=== PATIENT | female | born 1965 | race Caucasian/White ===

== ENCOUNTER 2024-08-22 11:08 | Inpatient (IN) ==
--- NOTE | 2024-08-22 11:20 | Emergency Department Note ---
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 medial and central band of the plantar fascia with a small plantar spur formation. 9. Low-grade sprain of the anterior talofibular ligament. 10. Degenerative osteoarthritic changes of midfoot/hindfoot and tibiotalar joints. 11. The above-mentioned findings correspond to CT findings. Electronically signed by Aurora Akbar 08-22-2024 7:33 PM Foot MRI 08/22/24 16:01 EXAM: MR foot RT w/o con CLINICAL HISTORY: HX CELLULITIS R/O SEPTIC JOINT PT. DIABETIC UNABLE TO COMPLETE EXAM/CONTRAST DUE TO SEVERE PAIN C/O SWELLING AND PAIN IN ENTIRE RIGHT FOOT/ANKLE X 1 DAY PREV. INJURY LAST YEAR INPATIENT TECHNIQUE: MRI of the right foot was performed without intravenous contrast administration. Sequences obtained include: Sagittal T1-weighted, Sagittal STIR. COMPARISON: 08/22/2024 CT ankle, FINDINGS: Bones: Normal alignment of the visualized metatarsal and phalangeal bones. No fractures or dislocations. No skin sinus tract or ulcer formation is observed. Joints and Compartmental tendons: Marginal osteophytes were noted. Muscles/soft tissues: Extensive edema and fluid signal intensity are seen within intrinsic muscles and subcutaneous tissues. IMPRESSION: 1. Incomplete study due to patient's discomfort. 2. No evidence of acute fracture or dislocations. 3. Extensive edema within intrinsic muscles and subcutaneous tissues. 4. Degenerative osteoarthritic changes. Electronically signed by Aurora Akbar 08-22-2024 7:34 PM Discharge Plan Visit Data Chief Complaint: Foot Injury/Pain Stated Complaint: RT FOOT/ANKLE PAIN, CAN'T WALK ON IT ED Provider: Magali Suarez ED Midlevel Provider: Stephenie Sawant Discharge Problem: Septic joint Forms Stand Alone Forms: [facility] [place] Prescriptions Prescriptions: No Action atenolol 25 mg tablet 25 mg PO HS venlafaxine 150 mg capsule,extended release 24hr 150 mg PO HS fluticasone propionate 50 mcg/actuation spray,suspension 1 spray intranasal Q12H Rx Instructions: administer into each nostril lisinopril-hydrochlorothiazide 20-25 mg tablet 1 tab PO QAM Rx Instructions: currently on hold metformin 500 mg tablet 1,000 mg PO BID mirtazapine 15 mg tablet 15 mg PO HS pregabalin 75 mg capsule 75 mg PO BID rosuvastatin [Crestor] 10 mg tablet 10 mg PO HS venlafaxine 75 mg tablet 75 mg PO HS nitrofurantoin monohyd/m-cryst [Macrobid] 100 mg capsule 100 mg PO Q12H 5 Days Qty: 10 0RF Rx Instructions: must administer with a meal/food Adult 50 Plus Probiotic 4 billion cell capsule 4,000 mmu cells PO DAILY Rx Instructions: administer with a meal methenamine hippurate 1 gram tablet 1 g PO BID Qty: 90 3RF Ozempic 2 mg/dose (8 mg/3 mL) pen injector 2 mg SUBCUT WK Humulin R U-500 (Conc) Kwikpen 500 unit/mL (3 mL) insulin pen 0 unit SUBCUT TID Rx Instructions: Sliding scale Referrals Referrals: Gabriela Alcantara PA-C [Primary Care Provider] - Discharge Problem: Septic joint Qualifiers: Septic arthritis location: foot Septic arthritis organism: due to unspecified organism Laterality: right Qualified Code(s): M00.9 - Pyogenic arthritis, unspecified
--- NOTE | 2024-08-22 11:50 | XRay Report ---
XR ankle RT min 3V routine CLINICAL HISTORY: Right ankle pain. COMPARISON: None FINDINGS: Alignment of the right ankle is anatomic. There is no acute fracture. No osseous lesions a re identified. Ankle soft tissue swelling is present. There is mild posterior calcaneal spurring. The re is mild tibiotalar joint osteophytosis. IMPRESSION: 1. No fracture or dislocation within the right ankle. 2. Right ankle soft tissue swelling.. Mild tibiotalar joint osteoarthritis. 4. Posterior calcaneal spurring. ACT 112: Negative or not required by law. Electronically signed by: Star De Jesus M.D. 08/22/2024 11:48 AM
[2024-08-22] MEDS: KETOROLAC TROMETHAMINE 60 MG/2 ML VIAL IM STA (11:51)
[2024-08-22] MEDS: KETOROLAC TROMETHAMINE 15 MG/ML VIAL IV ONE (11:52)
[2024-08-22] MEDS: ACETAMINOPHEN 500 MG TAB PO STA (11:52)
--- NOTE | 2024-08-22 12:08 | XRay Report ---
XR foot RT min 3V routine CLINICAL HISTORY: Right foot pain. COMPARISON: None FINDINGS: Alignment of the right foot is anatomic. No acute fractures. Tarsometatarsal joints are in tact. Several radiodensities of the forefoot measure up to 4 mm. There is mild posterior calcaneal sp urring. There is a tiny plantar calcaneal spur. Mild midfoot osteophytosis is present. There is right ankle and foot soft tissue swelling. IMPRESSION: 1. No acute fractures within the right foot. 2. Right ankle and foot soft tissue swelling. 3. Several small radiodensities within the right forefoot that measure up to 4 mm. These are likely d egenerative in etiology. Foreign bodies would be difficult to exclude but considered less likely. ACT 112: Negative or not required by law. Electronically signed by: Star De Jesus M.D. 08/22/2024 12:06 PM
[2024-08-22 12:34] LABS: Basophils # (auto) 0.01 K/uL (0.00-0.20); Basophils % (auto) 0.1 %; Hematocrit (blood only) 26.1 % (37.0-47.0); Hemoglobin 8.4 g/dl (12.0-16.0); Immature Granulocytes # (auto) 0.05 K/uL (0.01-0.20); Immature Granulocytes % (auto) 0.7 %; Lymphocytes # (auto) 0.42 K/uL (1.20-3.40); Lymphocytes % (auto) 5.6 %; Mean Corpuscular Hemoglobin 26.1 pg (25.0-34.0); Mean Corpuscular Hgb Conc 32.2 g/dL (32.0-36.0); Mean Corpuscular Volume 81.1 fL (80.0-100.0); Mean Platelet Volume 9.9 fL (9.4-12.4); Monocytes # (auto) 0.53 K/uL (0.11-0.59); Neutrophils # (auto) 6.51 K/uL (1.40-6.50); Neutrophils % (auto) 86.6 %; Platelet Count 176 K/uL (130-400); RDW Coefficient of Variation 16.4 % (11.5-14.5); RDW Standard Deviation 49.2 fL (36.4-46.3); Red Blood Count 3.22 M/uL (4.20-5.40); White Blood Count 7.52 K/ul (4.8-10.8)
[2024-08-22 12:54] LABS: Albumin Globulin Ratio 0.9 (0.9-2); Albumin Level 3.5 gm/dl (3.4-5.0); BUN Creatinine Ratio 16.8 (10-20); Bilirubin,Total 0.8 mg/dl (0.2-1.0); C Reactive Protein 15.33 mg/dl (0-0.5); Creatinine Clr Calc Pharmacy 69.3 ml/min; Globulin 3.7 gm/dl (2.5-4.0); Potassium 4.4 mmol/L (3.5-5.1); Total Protein 7.2 gm/dl (6.0-8.3); Uric Acid 4.9 mg/dl (2.6-7.2)
[2024-08-22 13:21] LABS: Lyme Screen Rflx Confirmation Negative (Negative)
[2024-08-22 13:48] LABS: Procalcitonin 2.58 ng/ml (0-0.5)
[2024-08-22] MEDS: OPTIRAY 320 100ml IV ONE (14:20)
--- NOTE | 2024-08-22 14:43 | CT Scan Report ---
EXAM: CT Right Lower Extremity With Intravenous Contrast Ankle INDICATION: Evaluate for septic joint. TECHNIQUE: Axial computed tomography images of the right ankle with intravenous contrast. Sagittal and coronal reformatted images were created and reviewed. This CT exam was performed using one or more of the following dose reduction techniques: automated exposure control, adjustment of the mA and/or kV according to patient size, and/or use of iterative reconstruction technique. CONTRAST: 94ml of Optiray 320 was administered intravenously. COMPARISON: No relevant prior studies available. FINDINGS: Bones/joints: Small amounts of fluid noted along the Achilles tendon and at plantar muscular insertions including flexor musculature posterior to the tibiotalar joint. Small to moderate-sized irregular joint effusion with gas noted subjacent and slightly lateral to the talus. The bones are generally demineralized. There is mild subchondral cystic changes of the inferolateral cortex of the posterior talus sagittal image 38. There is mild subcortical lucency of the anterior talar cortex without defined erosion. There is no fracture or periosteal reaction. Soft tissues: Subcutaneous edema and induration noted most notable along the distal fibula. There is thickening of the lateral superficial fascia. There is no soft tissue gas collection. No radiopaque foreign body noted. Vasculature: There is partial thrombosis of a prominent medial plantar vein. IMPRESSION: 1. Assuming there has been no recent intra-articular intervention, and small to moderate irregular joint effusion noted containing gas consistent with septic joint. Early osteomyelitis of the inferolateral and anterior talar cortices cannot be excluded. 2. Small amounts of fluid noted along the Achilles tendon and at muscular insertions i posterior to the tibiotalar joint. 3. There is partial thrombosis of a prominent medial plantar vein. ACT 112: Negative or not required by law. Electronically signed by Lori Emmanuel 08-22-2024 2:42 PM
[2024-08-22] MEDS ORDERED: DAPTOmycin 375 MG in SYRINGE 0 ML IV SCH (15:30)
[2024-08-22 15:50] LABS: Troponin I High Sensitivity 5.3 pg/ml (0-14)
[2024-08-22] MEDS: DAPTOmycin 500 MG in SYRINGE 0 ML IV ONE (15:56)
[2024-08-22] MEDS: SODIUM CHLORIDE 0.9% 1,000 ML IV ONE ×2 (15:56→18:31)
[2024-08-22] MEDS: PIPERACILLIN/TAZOBACTAM 4.5 GM/100 ML BAG IV ONE (15:56)
[2024-08-22] MEDS: MoRPHine SULFATE 4 MG/ML 1 ML CARP\\VIAL IV STA (18:31)
--- NOTE | 2024-08-22 19:16 | Emergency Department Note ---
ED Visit Note I was consulted by the Advanced Practice Provider. I personally approved the management plan and take responsibility for the patient management. This includes the aspects of: -History/Physical -MDM -I independently interpreted the following studies:Studies and results .
--- NOTE | 2024-08-22 19:34 | Magnetic Resonance Report ---
EXAM: MR ankle RT wo con CLINICAL HISTORY: HX CELLULITIS R/O SEPTIC JOINT PT. DIABETIC UNABLE TO COMPLETE EXAM/CONTRAST DUE TO SEVERE PAIN C/O SWELLING AND PAIN IN ENTIRE RIGHT FOOT/ANKLE X 1 DAY PREV. INJURY LAST YEAR INPATIENT TECHNIQUE: Multiplanar multi-sequential MRI of right ankle joint was performed without IV contrast administration. COMPARISON: 08/22/2024 CT ankle. FINDINGS: Bones: Normal alignment of the tibia, fibula, talus, calcaneus, navicular, cuboid, cuneiforms, and metatarsals. No fractures or dislocations. There is marked bone marrow edema involving calcaneus, and talus, most pronounced close to the subtalar joint. A small (1.1x0.8 cm) T1 hypo T2 hyperintense structure is noted in the mid-calcaneal level. No skin sinus tract or ulcer formation is observed. Joints and Compartmental tendons: Marginal osteophytes were noted at the tibiotalar, subtalar, tarsometatarsal, and talocalcaneal joints. Tibioatalar and subtalar joint effusion were observed with fluid signal around the ankle tendons in the background of mild tenosynovitis. Small effusion in the retrocalcaneal bursa associated with mild thickening of Achilles tendon inferomedially and intrasubstance altered signal. The tibialis anterior, extensor digitorum, and extensor hallucis longus are unremarkable. Articulations: The articulations of the tibiotalar, posterior subtalar, talonavicular anterior, subtalar, cuboidometatarsal, cuneometatarsal, intertarsal, and tarsometatarsal were unremarkable. Sinus tarsi and plantar fascia: Mild signal increase in sinus tarsi on T2W images with loss of fat signal on T1W images Mild thickening of medial and central bands of plantar fascia with small spur formation at the attachment. Ligaments: The deltoid ligament is intact. The calcaneofibular ligament is intact. Low-grade sprain of the anterior talofibular ligament. Intact posterior talofibular ligament. The intertarsal ligaments are unremarkable. The Calcaneocuboid and calcaneonavicular ligament are intact. Intact, intertarsal ligaments. Intact cuneometatarsal ligaments. Intact Lisfranc ligament. Muscles/Soft tissues: Extensive edema and fluid signal intensity are seen within midfoot and hindfoot intrinsic muscles and subcutaneous tissues. IMPRESSION: 1. Extensive edema and fluid signal intensity seen within midfoot and hindfoot intrinsic muscles and subcutaneous tissues may reflect inflammatory/infectious etiologies including cellulitis. 2. Marked bone marrow edema involving calcaneus, and talus, most pronounced surrounding the subtalar joint, which is suggestive of osteitis. 3. A small (1.1x0.8 cm) cyst-like structure in the mid-calcaneal level, indeterminate in etiology. Might be Trevin's abscess formation. Contrast-enhanced MR is recommended. 4. No sinus tract or ulcer formation observed. 5. Loss of fat signal of sinus tarsi. 6. Moderate tibioatalar and subtalar joint effusion with fluid signal around the ankle tendons in the background of mild tenosynovitis. Infected fluid can be ruled out with aspiration if needed. 7. Small effusion in the retrocalcaneal bursa associated with medial thickening and an altered intrasubstance signal of Achilles tendon, consistent with tendinopathy. 8. Mild thickening of the medial and central band of the plantar fascia with a small plantar spur formation. 9. Low-grade sprain of the anterior talofibular ligament. 10. Degenerative osteoarthritic changes of midfoot/hindfoot and tibiotalar joints. 11. The above-mentioned findings correspond to CT findings. Electronically signed by Aurora Akbar 08-22-2024 7:33 PM
--- NOTE | 2024-08-22 19:35 | Magnetic Resonance Report ---
EXAM: MR foot RT w/o con CLINICAL HISTORY: HX CELLULITIS R/O SEPTIC JOINT PT. DIABETIC UNABLE TO COMPLETE EXAM/CONTRAST DUE TO SEVERE PAIN C/O SWELLING AND PAIN IN ENTIRE RIGHT FOOT/ANKLE X 1 DAY PREV. INJURY LAST YEAR INPATIENT TECHNIQUE: MRI of the right foot was performed without intravenous contrast administration. Sequences obtained include: Sagittal T1-weighted, Sagittal STIR. COMPARISON: 08/22/2024 CT ankle, FINDINGS: Bones: Normal alignment of the visualized metatarsal and phalangeal bones. No fractures or dislocations. No skin sinus tract or ulcer formation is observed. Joints and Compartmental tendons: Marginal osteophytes were noted. Muscles/soft tissues: Extensive edema and fluid signal intensity are seen within intrinsic muscles and subcutaneous tissues. IMPRESSION: 1. Incomplete study due to patient's discomfort. 2. No evidence of acute fracture or dislocations. 3. Extensive edema within intrinsic muscles and subcutaneous tissues. 4. Degenerative osteoarthritic changes. Electronically signed by Aurora Akbar 08-22-2024 7:34 PM
[2024-08-22] MEDS: ACETAMINOPHEN 1,000 MG/100 ML VIAL IV STA (21:14)
[2024-08-22] MEDS ORDERED: DEXTROSE 50% 50 ML SYRINGE IV PRN (21:43)
[2024-08-22] MEDS ORDERED: GLUCAGON FOR INJ 1 MG VIAL SQ PRN (21:43)
[2024-08-22] MEDS ORDERED: GLUCOSE 40% GEL 15 GM TUBE PO PRN (21:43)
[2024-08-22] MEDS ORDERED: GLUCOSE 10 TAB/TUBE PO PRN (21:43)
[2024-08-22] MEDS ORDERED: CARBOHYDRATES FOR HYPOGLYCEMIA PO PRN (21:43)
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
[2024-08-22] MEDS ORDERED: CEFEPIME 2000MG 2,000 MG/20 ML SYR IV STA (21:56)
[2024-08-22 22:12] LABS: Thyroid Stimulating Hormone 1.592 uIu/ml (0.300-4.500)
[2024-08-22] MEDS: INSULIN ASPART PER UNIT CHARGE SC SCH (22:43)
[2024-08-22] MEDS: LANTUS PER UNIT CHARGE SQ STA (22:43)
[2024-08-22] MEDS: oxyCODONE HCL IR 5 MG TAB (IMMEDIATE RELEASE) PO PRN (22:48)
[2024-08-22 22:51] LABS: Base Excess VBG -5.4 mEq/L; HCO3 VBG 18 mmol/L; Oxygen Saturation VBG 87.1 %; PCO2 VBG 28 mmHg (38-50); PO2 VBG 52 mmHg; pH VBG 7.42 (7.36-7.41)
[2024-08-22 23:03] LABS: Reticulocyte % 1.88 % (0.50-2.00); Reticulocytes # 0.06 10^6/uL (0.020-0.100)
[2024-08-22 23:35] LABS: Ferritin 128.2 ng/ml (8-388)
[2024-08-22 23:36] LABS: A calco-baum cmplx NotReported Not Detected (NotDetected); Bact fragilis Not Reported Not Detected (NotDetected); Blood Culture Id Panel See PCR Comment (NotDetected); C auris Not Reported Not Detected (NotDetected); Calbicans Not Reported Not Detected (NotDetected); Candida glabrata Not Reported Not Detected (NotDetected); Candida krusei Not Reported Not Detected (NotDetected); Cneoformans/gatti Not Reported Not Detected (NotDetected); Cparapsilosis Not Reported Not Detected (NotDetected); E cloacae compx Not Reported Not Detected (NotDetected); Efaecalis Not Reported Not Detected (NotDetected); Efaecium Not Reported Not Detected (NotDetected); Enterobacterales Not Reported Not Detected (NotDetected); Escherichia coli Not Reported Not Detected (NotDetected); H influenzae Not Reported Not Detected (NotDetected); K aerogenes Not Reported Not Detected (NotDetected); Koxytoca Not Reported Not Detected (NotDetected); Kpneumoniae grp Not Reported Not Detected (NotDetected); Lmonocyt Not Reported Not Detected (NotDetected); N meningitidis Not Reported Not Detected (NotDetected); P aeruginosa Not Reported Not Detected (NotDetected); Proteus spp Not Reported Not Detected (NotDetected); Salmonella spp Not Reported Not Detected (NotDetected); Staph lugdunensis Not Reported Not Detected (NotDetected); Staph spp. Not Reported Not Detected (NotDetected); Staphaureus Not Reported Not Detected (NotDetected); Staphepi Not Reported Not Detected (NotDetected); Stenmaltophilia Not Reported Not Detected (NotDetected); Strep agal(GrpB) Not Reported DETECTED (NotDetected); Strep pneum Not Reported Not Detected (NotDetected); Strep pyog (GrpA) Not Reported Not Detected (NotDetected); Strep spp Not Reported DETECTED (NotDetected); Streptococcus spp DETECTED (NotDetected)
[2024-08-22 23:41] LABS: Folate (Folic Acid),Ser orPlas 12.41 ng/ml (>5.38)
--- NOTE | 2024-08-22 23:54 | Ultrasound Report ---
Exam(s): US VENOUS RIGHT LOWER EXTREMITY EXAM: US Duplex Right Lower Extremity Veins CLINICAL HISTORY: Reason for exam: swelling. TECHNIQUE: Real-time duplex ultrasound scan of the right lower extremity veins integrating B-mode two-dimensional vascular structure, Doppler spectral analysis, color flow Doppler imaging and compression. COMPARISON: No relevant prior studies available. FINDINGS: The exam is limited. Deep veins: No DVT in the visualized common femoral, femoral and proximal deep femoral veins. The popliteal vein was not visualized. The veins demonstrate normal color flow, are normally compressible, with normal phasic flow and/or augmentation response. Superficial veins: No thrombus in the visualized great saphenous vein. Soft tissues: No acute findings. No popliteal cyst. IMPRESSION: Limited exam. No deep venous thrombosis is noted in the visualized portions of the vessels. See discussion above Electronically signed by: Daniel Walsh MD 08/22/24 23:52 PM
--- NOTE | 2024-08-22 23:58 | XRay Report ---
Exam(s): XR CXR 1 VIEW EXAM: XR Chest, 1 View CLINICAL HISTORY: Reason for exam: hyponat. TECHNIQUE: Frontal views of the chest. COMPARISON: 05/19/2024. FINDINGS: Lungs: There is pulmonary vascular congestion. There are bilateral infiltrates. Pleural space: No pleural effusion is seen. No pneumothorax. Heart: The heart is enlarged.. Mediastinum: Unremarkable. There is mild uncoiling of thoracic aorta. Bones/joints: There are degenerative changes in the spine. IMPRESSION: Cardiomegaly with pulmonary vascular congestion and bilateral infiltrates may represent congestive heart failure/pulmonary edema. Cannot exclude underlying pneumonia. Electronically signed by: Daniel Walsh MD 08/22/24 23:56 PM
[2024-08-23 00:11] LABS: Streptococcus agalactiae(GrpB) DETECTED (NotDetected)
[2024-08-23 00:26] LABS: Magnesium 1.1 mg/dl (1.7-2.4)
[2024-08-23] MEDS: ALBUMIN 25% 25 GM/100 ML VIAL IV ONE ×3 (00:33→21:11)
[2024-08-23] MEDS: CEFEPIME 2000MG 2,000 MG/20 ML SYR IV SCH (01:23)
[2024-08-23] MEDS: PROMETHAZINE 6.25 MG/50.25 ML BAG IV PRN (02:18)
[2024-08-23] MEDS: ACETAMINOPHEN 500 MG TAB PO STA (02:45)
[2024-08-23] MEDS ORDERED: MoRPHine SULFATE 4 MG/ML 1 ML CARP\\VIAL IV PRN (03:13)
[2024-08-23] MEDS: PIPERACILLIN/TAZOBACTAM 4.5 GM/100 ML BAG IV SCH (03:43)
[2024-08-23] MEDS: MAGNESIUM SULFATE / D5W 1 GM/100 ML BAG IV SCH (03:45)
[2024-08-23 07:25] LABS: Estimated Average Glucose 166 mg/dl; Hemoglobin A1C 7.4 % (4.5-5.6)
[2024-08-23 07:51] LABS: Appearance Urine Cloudy (Clear); Bacteria Urine Automated None Seen (None Seen); Bilirubin Urine Negative (Negative); Blood Urine 2+ (Negative); Cast Urine Automated 0-2 /lpf (0-2); Color Urine Yellow; Glucose Urine UA Negative (Negative); Ketones Urine Trace (Negative); Leukocyte Esterase Urine Negative (Negative); Nitrite Urine Negative (Negative); Protein Urine 2+ (Negative); RBC Urine Automated 0-2 /hpf (0-2); Specific Gravity Urine 1.023 (1.000-1.030); Urobilinogen Urine Negative (Negative); WBC Urine Automated 0-5 /hpf (0-5)
[2024-08-23] MEDS: oxyCODONE HCL IR 5 MG TAB (IMMEDIATE RELEASE) PO PRN (08:04)
--- NOTE | 2024-08-23 08:23 | Hospitalist Progress Note ---
Date of Service August 23, 2024 Assessment & Plan (1) Sepsis: Plan: Septicemia Gram positive bacteremia Streptococcus on initial blood cultures Secondary to DM foot infection Patient not forthcoming about duration of symptoms. Reports having issues w/ R foot for some time but worsening since Reports she follows w/ outpt podiatry Dr. Esquivel in [place] - seen in about month ago for right foot- 5th toe Repeat blood cultures admitted to tele Echo obtained - LV is normal in size. Borderline concentric LVH. LV wall motion is normal. LVEF 60 to 65%. Diastolic function appears normal. There is no significant valvular disease. Follow blood cultx cont. zosyn Podiatry consulted, Offload RLE ID consulted Recurrent UTI on chronic methenamine suppression Rx Reports being treated w/ bactrim for several days for most recent UTI, last week Current UA negat. fo UTI Pulmonary congestion with abnormal BNP, echo obtained, cont. to monitor fluid status Hypertension, BP on the lower side, Hold BP meds for now given borderline BP Hyperlipidemia, on statin Rx DM2 insulin requiring, BSG markedly elevated, outpatient hemoglobin A1c of 7.5 from December 2023 as per outpatient records. Basal bolus insulin, ISS BG goal 110-140, carb count coverage Current hemoglobin A1c 7.4% Glycemic pharmacy consulted Acute on chronic anemia, patient denies overt GI/ bleed symptoms, currently declining FOBT Anemia workup, transfuse PRBC if hemoglobin less than 7 and or for symptomatic anemia Anxiety/mood disorder, cont. venlafaxine DVT prophylaxis. SCDs re: possible procedure Full code Admission and Anticipated Discharge Date Admission Date: August 22, 2024 Subjective Patient seen in follow up for sepsis, Gram-positive bacteremia Reports right foot pain since last worsening. Also reports chills at night since History of recurrent UTI, reports being treated with Bactrim for UTI since Friday Currently laying in bed, in no acute distress, but appears ill No chest pain, abdominal pain, nausea vomiting. Reports some shortness of breath for past several days Echo obtained Podiatry, ID consulted Says she follows w/ podiatry - Dr. Esquivel in [place] as outpt Review of Systems Review of Systems: All systems reviewed & are unremarkable except as noted in Subjective Physical Exam Physical Exam: GENERAL: obese F in NAD, + appears ill HEENT: NC/AT, EOMI. NECK : Supple CHEST : Decreased breath sounds, no tenderness HEART : + mildly tachycardic, no obvious murmurs ABDOMEN: soft, some distention, nontender EXTREMITIES : Tender right foot/right ankle , + swelling, no erythema noted NEUROLOGIC : Coherent, no facial asymmetry, speech fluent, answers appropriately, moves extremities SKIN: warm, dry Results & Data Results & Data Vital Signs (Past 12 Hours) Vital Signs Temp Pulse Pulse Resp BP BP Pulse Ox 08/23/24 08:17 100 H 08/23/24 07:30 08/23/24 06:03 37.0 C 95 H 18 104/65 90 08/23/24 04:58 37.1 C 08/23/24 04:37 106 H 08/23/24 03:57 65 08/23/24 03:54 37.8 C H 107 H 18 99/61 L 91 08/23/24 00:10 08/23/24 00:10 37.0 C 108 H 18 127/67 90 08/22/24 23:44 38.1 C H 107 H 20 113/50 L 94 08/22/24 22:01 111 H 20 117/55 L 100 O2 Del Method 08/23/24 08:17 08/23/24 07:30 Room Air 08/23/24 06:03 Room Air 08/23/24 04:58 08/23/24 04:37 08/23/24 03:57 08/23/24 03:54 Room Air 08/23/24 00:10 Room Air 08/23/24 00:10 Room Air 08/22/24 23:44 Room Air 08/22/24 22:01 Laboratory Results 08/23/24 08/23/24 08/22/24 Range/Units 06:40 06:31 22:45 WBC (4.8-10.8) K/ul RBC (4.20-5.40) M/uL Hgb (12.0-16.0) g/dl Hct (37.0-47.0) % MCV (80.0-100.0) fL MCH (25.0-34.0) pg MCHC (32.0-36.0) g/dL RDW Std Deviation (36.4-46.3) fL RDW Coeff of Karissa (11.5-14.5) % Plt Count (130-400) K/uL MPV (9.4-12.4) fL Immature Gran % (Auto) % Neut % (Auto) % Lymph % (Auto) % [place] % (Auto) % Eos % (Auto) % Baso % (Auto) % Reticulocyte % (Auto) (0.50-2.00) % Neut # (Auto) (1.40-6.50) K/uL Lymph # (Auto) (1.20-3.40) K/uL [place] # (Auto) (0.11-0.59) K/uL Eos # (Auto) (0.00-0.50) K/uL Baso # (Auto) (0.00-0.20) K/uL Reticulocyte # (0.020-0.100) 10^6/uL Immature Gran # (Auto) (0.01-0.20) K/uL VBG pH (7.36-7.41) VBG pCO2 (38-50) mmHg VBG pO2 mmHg VBG HCO3 mmol/L VBG O2 Saturation % VBG Base Excess mEq/L Sodium (136-145) mmol/L Potassium (3.5-5.1) mmol/L Chloride (98-107) mmol/L Carbon Dioxide (21-32) mmol/L Anion Gap (3-11) BUN (6-23) mg/dl Creatinine (0.6-1.2) mg/dl Est Cr Clr Drug Dosing ml/min eGFR BUN/Creatinine Ratio (10-20) Glucose (70-99(Fasting)) mg/dl POC Glucose (70-99) mg/dl Estimat Average Glucose mg/dl Hemoglobin A1c (4.5-5.6) % Uric Acid (2.6-7.2) mg/dl Calcium (8.6-10.3) mg/dl Magnesium (1.7-2.4) mg/dl Iron (35-150) mcg/dl Transferrin (200-360) mg/dl Ferritin (8-388) ng/ml Total Bilirubin (0.2-1.0) mg/dl AST (13-39) U/L ALT (7-52) U/L Alkaline Phosphatase (34-104) U/L Ammonia (18-72) umol/L Troponin I High Sens (0-14) pg/ml C-Reactive Protein (0-0.5) mg/dl B-Natriuretic Peptide 422 H (0-100) pg/ml Total Protein (6.0-8.3) gm/dl Albumin (3.4-5.0) gm/dl Globulin (2.5-4.0) gm/dl Albumin/Globulin Ratio (0.9-2) Vitamin B12 (180-914) pg/ml Folate (>5.38) ng/ml Procalcitonin (0-0.5) ng/ml TSH (0.300-4.500) uIu/ml Urine Color Yellow Urine Appearance Cloudy A (Clear) Urine pH 6.0 (4.5-7.5) Ur Specific [place] 1.023 (1.000-1.030) Urine Protein 2+ H (Negative) Urine Glucose (UA) Negative (Negative) Urine Ketones Trace H (Negative) Urine Blood 2+ H (Negative) Urine Nitrite Negative (Negative) Urine Bilirubin Negative (Negative) Urine Urobilinogen Negative (Negative) Ur Leukocyte Esterase Negative (Negative) Urine WBC (Auto) 0-5 (0-5) /hpf Urine RBC (Auto) 0-2 (0-2) /hpf U Hyaline Cast (Auto) 0-2 (0-2) /lpf U Epithel Cells (Auto) 11-20 H (0-2) /hpf Urine Bacteria (Auto) None Seen (None Seen) Nasal Screen MRSA (PCR) (Negative) Stool Occult Bld Scrn Negative (Negative) Lyme Disease Screen (Negative) Streptococcus sp PCR (NotDetected) Strep agalactiae (PCR) (NotDetected) Bld Cult ID Panel PCR (NotDetected) Blood Type Antibody Screen 08/22/24 08/22/24 08/22/24 Range/Units 22:44 22:33 22:14 WBC (4.8-10.8) K/ul RBC (4.20-5.40) M/uL Hgb (12.0-16.0) g/dl Hct (37.0-47.0) % MCV (80.0-100.0) fL MCH (25.0-34.0) pg MCHC (32.0-36.0) g/dL RDW Std Deviation (36.4-46.3) fL RDW Coeff of Karissa (11.5-14.5) % Plt Count (130-400) K/uL MPV (9.4-12.4) fL Immature Gran % (Auto) % Neut % (Auto) % Lymph % (Auto) % [place] % (Auto) % Eos % (Auto) % Baso % (Auto) % Reticulocyte % (Auto) 1.88 (0.50-2.00) % Neut # (Auto) (1.40-6.50) K/uL Lymph # (Auto) (1.20-3.40) K/uL [place] # (Auto) (0.11-0.59) K/uL Eos # (Auto) (0.00-0.50) K/uL Baso # (Auto) (0.00-0.20) K/uL Reticulocyte # 0.060 (0.020-0.100) 10^6/uL Immature Gran # (Auto) (0.01-0.20) K/uL VBG pH 7.42 H (7.36-7.41) VBG pCO2 28 L (38-50) mmHg VBG pO2 52 mmHg VBG HCO3 18 mmol/L VBG O2 Saturation 87.1 % VBG Base Excess -5.4 mEq/L Sodium (136-145) mmol/L Potassium (3.5-5.1) mmol/L Chloride (98-107) mmol/L Carbon Dioxide (21-32) mmol/L Anion Gap (3-11) BUN (6-23) mg/dl Creatinine (0.6-1.2) mg/dl Est Cr Clr Drug Dosing ml/min eGFR BUN/Creatinine Ratio (10-20) Glucose (70-99(Fasting)) mg/dl POC Glucose 261 H (70-99) mg/dl Estimat Average Glucose mg/dl Hemoglobin A1c (4.5-5.6) % Uric Acid (2.6-7.2) mg/dl Calcium (8.6-10.3) mg/dl Magnesium 1.1 L (1.7-2.4) mg/dl Iron 12 L (35-150) mcg/dl Transferrin 185 L (200-360) mg/dl Ferritin 128.2 (8-388) ng/ml Total Bilirubin (0.2-1.0) mg/dl AST (13-39) U/L ALT (7-52) U/L Alkaline Phosphatase (34-104) U/L Ammonia 19.0 (18-72) umol/L Troponin I High Sens (0-14) pg/ml C-Reactive Protein (0-0.5) mg/dl B-Natriuretic Peptide (0-100) pg/ml Total Protein (6.0-8.3) gm/dl Albumin (3.4-5.0) gm/dl Globulin (2.5-4.0) gm/dl Albumin/Globulin Ratio (0.9-2) Vitamin B12 267 (180-914) pg/ml Folate 12.41 (>5.38) ng/ml Procalcitonin (0-0.5) ng/ml TSH (0.300-4.500) uIu/ml Urine Color Urine Appearance (Clear) Urine pH (4.5-7.5) Ur Specific [place] (1.000-1.030) Urine Protein (Negative) Urine Glucose (UA) (Negative) Urine Ketones (Negative) Urine Blood (Negative) Urine Nitrite (Negative) Urine Bilirubin (Negative) Urine Urobilinogen (Negative) Ur Leukocyte Esterase (Negative) Urine WBC (Auto) (0-5) /hpf Urine RBC (Auto) (0-2) /hpf U Hyaline Cast (Auto) (0-2) /lpf U Epithel Cells (Auto) (0-2) /hpf Urine Bacteria (Auto) (None Seen) Nasal Screen MRSA (PCR) Negative (Negative) Stool Occult Bld Scrn (Negative) Lyme Disease Screen (Negative) Streptococcus sp PCR (NotDetected) Strep agalactiae (PCR) (NotDetected) Bld Cult ID Panel PCR (NotDetected) Blood Type A Positive Antibody Screen NEGATIVE 08/22/24 08/22/24 08/22/24 Range/Units 18:37 15:22 14:57 WBC (4.8-10.8) K/ul RBC (4.20-5.40) M/uL Hgb (12.0-16.0) g/dl Hct (37.0-47.0) % MCV (80.0-100.0) fL MCH (25.0-34.0) pg MCHC (32.0-36.0) g/dL RDW Std Deviation (36.4-46.3) fL RDW Coeff of Karissa (11.5-14.5) % Plt Count (130-400) K/uL MPV (9.4-12.4) fL Immature Gran % (Auto) % Neut % (Auto) % Lymph % (Auto) % [place] % (Auto) % Eos % (Auto) % Baso % (Auto) % Reticulocyte % (Auto) (0.50-2.00) % Neut # (Auto) (1.40-6.50) K/uL Lymph # (Auto) (1.20-3.40) K/uL [place] # (Auto) (0.11-0.59) K/uL Eos # (Auto) (0.00-0.50) K/uL Baso # (Auto) (0.00-0.20) K/uL Reticulocyte # (0.020-0.100) 10^6/uL Immature Gran # (Auto) (0.01-0.20) K/uL VBG pH (7.36-7.41) VBG pCO2 (38-50) mmHg VBG pO2 mmHg VBG HCO3 mmol/L VBG O2 Saturation % VBG Base Excess mEq/L Sodium (136-145) mmol/L Potassium (3.5-5.1) mmol/L Chloride (98-107) mmol/L Carbon Dioxide (21-32) mmol/L Anion Gap (3-11) BUN (6-23) mg/dl Creatinine (0.6-1.2) mg/dl Est Cr Clr Drug Dosing ml/min eGFR BUN/Creatinine Ratio (10-20) Glucose (70-99(Fasting)) mg/dl POC Glucose 323 H* 427 H* (70-99) mg/dl Estimat Average Glucose mg/dl Hemoglobin A1c (4.5-5.6) % Uric Acid (2.6-7.2) mg/dl Calcium (8.6-10.3) mg/dl Magnesium (1.7-2.4) mg/dl Iron (35-150) mcg/dl Transferrin (200-360) mg/dl Ferritin (8-388) ng/ml Total Bilirubin (0.2-1.0) mg/dl AST (13-39) U/L ALT (7-52) U/L Alkaline Phosphatase (34-104) U/L Ammonia (18-72) umol/L Troponin I High Sens 5.3 (0-14) pg/ml C-Reactive Protein (0-0.5) mg/dl B-Natriuretic Peptide (0-100) pg/ml Total Protein (6.0-8.3) gm/dl Albumin (3.4-5.0) gm/dl Globulin (2.5-4.0) gm/dl Albumin/Globulin Ratio (0.9-2) Vitamin B12 (180-914) pg/ml Folate (>5.38) ng/ml Procalcitonin (0-0.5) ng/ml TSH 1.592 (0.300-4.500) uIu/ml Urine Color Urine Appearance (Clear) Urine pH (4.5-7.5) Ur Specific [place] (1.000-1.030) Urine Protein (Negative) Urine Glucose (UA) (Negative) Urine Ketones (Negative) Urine Blood (Negative) Urine Nitrite (Negative) Urine Bilirubin (Negative) Urine Urobilinogen (Negative) Ur Leukocyte Esterase (Negative) Urine WBC (Auto) (0-5) /hpf Urine RBC (Auto) (0-2) /hpf U Hyaline Cast (Auto) (0-2) /lpf U Epithel Cells (Auto) (0-2) /hpf Urine Bacteria (Auto) (None Seen) Nasal Screen MRSA (PCR) (Negative) Stool Occult Bld Scrn (Negative) Lyme Disease Screen (Negative) Streptococcus sp PCR (NotDetected) Strep agalactiae (PCR) (NotDetected) Bld Cult ID Panel PCR (NotDetected) Blood Type Antibody Screen 08/22/24 08/22/24 08/22/24 Range/Units 14:56 12:14 12:14 WBC 7.52 (4.8-10.8) K/ul RBC 3.22 L (4.20-5.40) M/uL Hgb 8.4 L (12.0-16.0) g/dl Hct 26.1 L (37.0-47.0) % MCV 81.1 (80.0-100.0) fL MCH 26.1 (25.0-34.0) pg MCHC 32.2 (32.0-36.0) g/dL RDW Std Deviation 49.2 H (36.4-46.3) fL RDW Coeff of Karissa 16.4 H (11.5-14.5) % Plt Count 176 (130-400) K/uL MPV 9.9 (9.4-12.4) fL Immature Gran % (Auto) 0.7 % Neut % (Auto) 86.6 % Lymph % (Auto) 5.6 % [place] % (Auto) 7.0 % Eos % (Auto) 0.0 % Baso % (Auto) 0.1 % Reticulocyte % (Auto) (0.50-2.00) % Neut # (Auto) 6.51 H (1.40-6.50) K/uL Lymph # (Auto) 0.42 L (1.20-3.40) K/uL [place] # (Auto) 0.53 (0.11-0.59) K/uL Eos # (Auto) 0.00 (0.00-0.50) K/uL Baso # (Auto) 0.01 (0.00-0.20) K/uL Reticulocyte # (0.020-0.100) 10^6/uL Immature Gran # (Auto) 0.05 (0.01-0.20) K/uL VBG pH (7.36-7.41) VBG pCO2 (38-50) mmHg VBG pO2 mmHg VBG HCO3 mmol/L VBG O2 Saturation % VBG Base Excess mEq/L Sodium 130 L (136-145) mmol/L Potassium 4.4 (3.5-5.1) mmol/L Chloride 98 (98-107) mmol/L Carbon Dioxide 19 L (21-32) mmol/L Anion Gap 13 H (3-11) BUN 20 (6-23) mg/dl Creatinine 1.19 (0.6-1.2) mg/dl Est Cr Clr Drug Dosing 69.3 ml/min eGFR 53.00 BUN/Creatinine Ratio 16.8 (10-20) Glucose 514 H* (70-99(Fasting)) mg/dl POC Glucose (70-99) mg/dl Estimat Average Glucose 166 mg/dl Hemoglobin A1c 7.4 H (4.5-5.6) % Uric Acid 4.9 (2.6-7.2) mg/dl Calcium 8.0 L (8.6-10.3) mg/dl Magnesium (1.7-2.4) mg/dl Iron (35-150) mcg/dl Transferrin (200-360) mg/dl Ferritin (8-388) ng/ml Total Bilirubin 0.8 (0.2-1.0) mg/dl AST 14 (13-39) U/L ALT 19 (7-52) U/L Alkaline Phosphatase 73 (34-104) U/L Ammonia (18-72) umol/L Troponin I High Sens (0-14) pg/ml C-Reactive Protein 15.33 H (0-0.5) mg/dl B-Natriuretic Peptide (0-100) pg/ml Total Protein 7.2 (6.0-8.3) gm/dl Albumin 3.5 (3.4-5.0) gm/dl Globulin 3.7 (2.5-4.0) gm/dl Albumin/Globulin Ratio 0.9 (0.9-2) Vitamin B12 (180-914) pg/ml Folate (>5.38) ng/ml Procalcitonin Cancelled 2.58 H (0-0.5) ng/ml TSH (0.300-4.500) uIu/ml Urine Color Urine Appearance (Clear) Urine pH (4.5-7.5) Ur Specific [place] (1.000-1.030) Urine Protein (Negative) Urine Glucose (UA) (Negative) Urine Ketones (Negative) Urine Blood (Negative) Urine Nitrite (Negative) Urine Bilirubin (Negative) Urine Urobilinogen (Negative) Ur Leukocyte Esterase (Negative) Urine WBC (Auto) (0-5) /hpf Urine RBC (Auto) (0-2) /hpf U Hyaline Cast (Auto) (0-2) /lpf U Epithel Cells (Auto) (0-2) /hpf Urine Bacteria (Auto) (None Seen) Nasal Screen MRSA (PCR) (Negative) Stool Occult Bld Scrn (Negative) Lyme Disease Screen Negative (Negative) Streptococcus sp PCR DETECTED A (NotDetected) Strep agalactiae (PCR) DETECTED A (NotDetected) Bld Cult ID Panel PCR See PCR Comment (NotDetected) Blood Type Antibody Screen Medications Administered Current Inpatient Medications Acetaminophen (Acetaminophen 500 Mg Tab) 500 mg PO Q6H PRN PRN Reason: fever/pain Stop: 09/21/24 21:49 Atenolol (Atenolol 25 Mg Tablet) 25 mg PO HS BOBO Stop: 09/22/24 20:59 Dextrose (Dextrose 50% 50 Ml Syringe) 25 - 50 ml IV UD PRN; Protocol PRN Reason: Hypoglycemia Protocol Stop: 09/21/24 21:42 Glucagon (Glucagon For Inj 1 Mg Vial) 1 mg SQ UD PRN; Protocol PRN Reason: Hypoglycemia Protocol Stop: 09/21/24 21:42 Glucose (Glucose 40% Gel 15 Gm Tube) 15 - 30 gm PO UD PRN; Protocol PRN Reason: Hypoglycemia Protocol Stop: 09/21/24 21:42 Glucose (Glucose 10 Tab/Tube) 4 - 8 tab PO UD PRN; Protocol PRN Reason: Hypoglycemia Protocol Stop: 09/21/24 21:42 Magnesium Sulfate/Dextrose (Magnesium Sulfate / D5w) 1 gm in 100 mls @ 50 mls/hr IV Q2H BOBO Stop: 08/23/24 09:14 Last Admin: 08/23/24 08:09 Dose: 50 mls/hr Piperacillin Sod/Tazobactam Sod (Zosyn) 4.5 gm in 100 mls @ 25 mls/hr IV Q8H BOBO; Protocol Stop: 10/04/24 03:14 Last Infusion: 08/23/24 07:56 Dose: Infused Promethazine HCl (Phenergan) 12.5 mg in 50.5 mls @ 202 mls/hr IV Q6H PRN PRN Reason: Nausea And Vomiting Stop: 09/22/24 03:13 Insulin Aspart (Insulin Aspart Per Unit Charge) 0 units SC ACHS [facility] Stop: 09/21/24 21:44 Last Admin: 08/22/24 22:43 Dose: 5 units Insulin Glargine (Lantus Per Unit Charge) 20 units SQ HS BOBO Stop: 09/22/24 20:59 Miscellaneous (Carbohydrates For Hypoglycemia ) 15 - 30 gm PO UD PRN PRN Reason: Hypoglycemia Protocol Stop: 09/21/24 21:42 Morphine Sulfate (Morphine Sulfate 4 Mg/Ml 1 Ml Carp\Vial) 4 mg IV Q4H PRN PRN Reason: Pain Stop: 09/06/24 03:12 Oxycodone HCl (Oxycodone Hcl Ir 5 Mg Tab (Immediate Release)) 5 - 10 mg PO QID PRN PRN Reason: Pain Stop: 09/06/24 03:12 Last Admin: 08/23/24 08:04 Dose: 10 mg Rosuvastatin Calcium (Rosuvastatin Calcium 10 Mg Tab) 10 mg PO HS BOBO Stop: 09/22/24 20:59 Venlafaxine HCl (Venlafaxine Hcl Xr 150 Mg Capxr) 150 mg PO HS BOBO Stop: 09/22/24 20:59 Venlafaxine HCl (Venlafaxine Hcl Xr 75 Mg Capxr) 75 mg PO HS BOBO Stop: 09/22/24 20:59
[2024-08-23 10:20] LABS: Hematocrit (blood only) 23.3 % (37.0-47.0); Hemoglobin 7.6 g/dl (12.0-16.0); Mean Corpuscular Hemoglobin 26.6 pg (25.0-34.0); Mean Corpuscular Hgb Conc 32.6 g/dL (32.0-36.0); Mean Corpuscular Volume 81.5 fL (80.0-100.0); Platelet Count 135 K/uL (130-400); RDW Coefficient of Variation 16.6 % (11.5-14.5); RDW Standard Deviation 49.6 fL (36.4-46.3); Red Blood Count 2.86 M/uL (4.20-5.40); White Blood Count 6.27 K/ul (4.8-10.8)
[2024-08-23 10:37] LABS: Basophils # (auto) 0.01 K/uL (0.00-0.20); Basophils % (auto) 0.2 %; Dohle Bodies 1+; Immature Granulocytes # (auto) 0.09 K/uL (0.01-0.20); Immature Granulocytes % (auto) 1.4 %; Lymphocytes # (auto) 0.45 K/uL (1.20-3.40); Lymphocytes % (auto) 7.2 %; Monocytes # (auto) 0.42 K/uL (0.11-0.59); Monocytes % (auto) 6.7 %; Neutrophils % (auto) 84.5 %; Polychromasia 1+; Toxic Granulation 1+
[2024-08-23 10:57] LABS: BUN Creatinine Ratio 13.4 (10-20); Calcium 7.9 mg/dl (8.6-10.3); Creatinine Clr Calc Pharmacy 66.2 ml/min; Magnesium 1.9 mg/dl (1.7-2.4); Potassium 3.9 mmol/L (3.5-5.1)
[2024-08-23] MEDS ORDERED: PHARMACY GLYCEMIC MGMT CONSULT PRN (11:00)
[2024-08-23] MEDS: ACETAMINOPHEN 500 MG TAB PO PRN (11:07)
[2024-08-23] MEDS: LANTUS PER UNIT CHARGE SQ ONE (11:47)
[2024-08-23] MEDS: INSULIN HUMAN REGULAR PER UNIT 10 UNITS in SYRINGE 9.9 ML IV ONE ×2 (12:23→21:49)
--- NOTE | 2024-08-23 12:50 | Pharmacy Report ---
Pharmacy Glycemic Short Note 2 - Date of Service August 23, 2024 - Glycemic Short BSG Results (Last 24 hours): 08/22/24 08/22/24 08/22/24 12:14 15:22 18:37 Glucose 514 H* POC Glucose 427 H* 323 H* 08/22/24 08/23/24 08/23/24 22:33 09:35 11:49 Glucose 417 H* POC Glucose 261 H 402 H* 08/23/24 11:51 Glucose POC Glucose 430 H* OUTPATIENT ANTIDIABETIC REGIMEN: * Humulin U-500 insulin per scale BID/TID * Metformin 1000 mg PO BIDM * Ozempic 2 mg SC weekly HbA1c: 7.4% (08/22/24) ASSESSMENT: * DF is a 59 year old female admitted w/ sepsis secondary to diabetic foot infection * Blood cultures x 2 positive for gram-positive cocci in chains ( Streptococcus agalactiae per BCID-2) * Receiving Zosyn at this time * Pharmacy consulted for glycemic management ~lunchtime today due to persistent hyperglycemia (blood sugar > 400 mg/dL) * Discussed outpatient regimen w/ patient who reports estimating U-500 doses at home, sometimes taking up to 180 units in the morning and 75 units at dinner. Patient sometimes takes a dose at lunchtime, but often skips it. * Currently ordered insulin regimen is far too conservative, will tighten based on weight-based parameters and give one-time IV bolus * T2DM diet ordered PLAN FOR INPATIENT GLYCEMIC CONTROL: * Hold outpatient oral diabetes medications * IV insulin bolus of 10 units x 1 at lunch * Basal insulin * Lantus 30 units SC x 1 now * Lantus 20-25-30 units SC BID (starting this evening 08/23/24) * Bolus insulin * NovoLog per scale ACHS or Q6hrs while NPO * Goal Range: Low 110 mg/dL - High 140 mg/dL * Correction Factor: 15 mg/dL/unit * Nutritional / Prandial insulin per carb ratio of 1 unit per 5 grams CHO consumed
--- NOTE | 2024-08-23 14:21 | XRay Report ---
XR foot LT min 3V routine CLINICAL HISTORY: left fifth toe ulceration COMPARISON: Left foot radiographs May 15, 2024. FINDINGS: Alignment of the left foot is anatomic. Tarsometatarsal joints are intact. There are no fr actures. No bony erosions are present. A bandage on the left fifth toe is noted. Soft tissue defects of the left fifth toe represent wounds. There is left foot soft tissue swelling. IMPRESSION: Left fifth toe wounds. No evidence for acute osteomyelitis. ACT 112: Negative or not required by law. Electronically signed by: Star De Jesus M.D. 08/23/2024 2:20 PM
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
[2024-08-23] MEDS ORDERED: DAPTOmycin 500 MG in SYRINGE 0 ML IV SCH (15:00)
[2024-08-23] MEDS: ceFAZolin 2000MG 2,000 MG/15 ML SYR IV SCH (16:00)
[2024-08-23] MEDS: KETOROLAC TROMETHAMINE 15 MG/ML VIAL IV ONE (17:05)
--- NOTE | 2024-08-23 19:48 | Communication Note ---
Date of Service: August 23, 2024 Patient with recurrent fever on cefazolin Rx. CT right ankle report (08/22) small to moderate irregular joint effusion noted containing gas consistent with septic joint. Early osteomyelitis of the inferolateral and anterior talar cortices cannot be excluded. AP Recurrent fever Streptococcus septicemia secondary to diabetic foot infection ongoing cefazolin Rx Possible anaerobic organism given gas findings on CT right ankle Add Flagyl to cefazolin for now
[2024-08-23] MEDS ORDERED: ACETAMINOPHEN 325 MG TAB PO PRN (19:51)
[2024-08-23] MEDS ORDERED: LANTUS PER UNIT CHARGE SQ SCH (21:00)
[2024-08-23] MEDS: LANTUS PER UNIT CHARGE SQ SCH (21:12)
[2024-08-23] MEDS: MAGNESIUM SULFATE / D5W 1 GM/100 ML BAG IV ONE (21:12)
[2024-08-23] MEDS: metroNIDAZOLE 500 MG/100 ML BAG IV SCH (21:13)
[2024-08-23] MEDS: ROSUVASTATIN CALCIUM 10 MG TAB PO SCH (21:13)
[2024-08-23] MEDS: VENLAFAXINE HCL XR 150 MG CAPXR PO SCH (21:13)
[2024-08-23] MEDS: VENLAFAXINE HCL XR 75 MG CAPXR PO SCH (21:14)
[2024-08-23] MEDS: ATENOLOL 25 MG TABLET PO SCH (21:14)
[2024-08-23] MEDS: PROMETHAZINE 12.5 MG/50.5 ML BAG IV PRN (21:50)
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
[2024-08-23] MEDS: INSULIN ASPART PER UNIT CHARGE SC SCH (23:52)
[2024-08-24] MEDS: LORazepam 0.5 MG TAB PO PRN (02:36)
[2024-08-24 05:45] LABS: Hematocrit (blood only) 24.2 % (37.0-47.0); Mean Corpuscular Hemoglobin 26.2 pg (25.0-34.0); Mean Corpuscular Hgb Conc 33.1 g/dL (32.0-36.0); Mean Corpuscular Volume 79.3 fL (80.0-100.0); Mean Platelet Volume 9.7 fL (9.4-12.4); Platelet Count 196 K/uL (130-400); RDW Coefficient of Variation 16.5 % (11.5-14.5); Red Blood Count 3.05 M/uL (4.20-5.40); White Blood Count 7.34 K/ul (4.8-10.8)
[2024-08-24 06:03] LABS: BUN Creatinine Ratio 14.5 (10-20); Calcium 8.5 mg/dl (8.6-10.3); Creatinine Clr Calc Pharmacy 67.3 ml/min; Phosphorus 1.8 mg/dl (2.5-4.9); Potassium 3.9 mmol/L (3.5-5.1)
[2024-08-24 07:01] LABS: ALC (manual) 0.95 K/uL (1.2-3.4); ANC (manual) 6.39 K/uL (1.4-6.5); Dohle Bodies 1+; Lymphocytes # (manual) 0.95 K/uL (1.2-3.4); Lymphocytes % (manual) 13 %; Neutrophils # (manual) 6.39 K/uL (1.40-6.50); Neutrophils % (manual) 87 %; Polychromasia 1+
[2024-08-24] MEDS: INSULIN HUMAN NPH SC SCH ×2 (08:56→18:28)
[2024-08-24] MEDS: INSULIN HUMAN REGULAR PER UNIT 10 UNITS in SYRINGE 9.9 ML IV ONE (08:57)
[2024-08-24] MEDS ORDERED: oxyCODONE HCL IR 5 MG TAB (IMMEDIATE RELEASE) PO PRN (12:51)
[2024-08-24] MEDS ORDERED: ACETAMINOPHEN 325 MG TAB PO PRN (12:51)
--- NOTE | 2024-08-24 12:59 | Hospitalist Progress Note ---
Date of Service August 24, 2024 Assessment & Plan (1) Sepsis: (2) Streptococcal bacteremia: (3) Septic joint: (4) Osteomyelitis of right foot: (5) Diabetes mellitus due to underlying condition, uncontrolled, with hyperglycemia, with long-term current use of insulin: (6) Peripheral neuropathy: (7) Hypertension: Plan Patient with strep bacteremia due to septic arthritis of the ankle and osteomyelitis of the foot. And uncontrolled diabetes Continue current antibiotics Surveillance blood cultures sterile today, will place PICC line when sterile at 48 hours for anticipated 4 to 6 weeks of IV antibiotics Plan for podiatric surgical intervention on Replete phosphorus Communicated with patient plan for long-term IV antibiotics Case management aware of need for antibiotics and will help coordinate home antibiotics Resume [facility] continuing to adjust insulin for better glucose control. Admission and Anticipated Discharge Date Admission Date: August 22, 2024 Subjective Patient inquiring about her Lyrica. Reports fairly significant neuropathy. Pain is controlled. Understands plan for surgery on Physical Exam Physical Exam: Constitutional: Alert HEENT: Mucous membranes moist. Lungs: Clear to auscultation, decreased, no wheezes rales or rhonchi CV: S1-S2, regular Abdomen: Soft, nontender, nondistended Extremities: Trace pretibial edema Neuro: Moves all 4 extremities Psych: Cooperative, normal mood Results & Data Results & Data Vital Signs (Past 12 Hours) Vital Signs Temp Pulse Pulse Resp BP Pulse Ox O2 Del Method 08/24/24 12:43 37.6 C H 98 H 18 107/67 99 Room Air 08/24/24 10:47 36.9 C 90 20 102/68 90 Room Air 08/24/24 09:37 Room Air 08/24/24 08:30 36.9 C 88 20 134/99 90 Room Air 08/24/24 07:54 36.9 C 80 22 134/99 90 Room Air 08/24/24 07:27 88 08/24/24 03:35 36.7 C 99 H 18 159/81 H 90 Nasal Cannula O2 Flow Rate 08/24/24 12:43 08/24/24 10:47 08/24/24 09:37 08/24/24 08:30 08/24/24 07:54 08/24/24 07:27 08/24/24 03:35 2 Diagnostic Findings Reviewed imaging, laboratory and diagnostic studies. Pertinent findings as below.Hemoglobin 8.0, stable Sodium 132, decreased in the setting of hyperglycemia Rest of electrolytes reviewed Glucose 323, reviewed (3) Septic joint Laterality: right Septic arthritis location: foot Septic arthritis organism: due to unspecified organism Qualified Code(s): M00.9 - Pyogenic arthritis, unspecified (4) Osteomyelitis of right foot Osteomyelitis type: acute hematogenous Qualified Code(s): M86.071 - Acute hematogenous osteomyelitis, right ankle and foot
--- NOTE | 2024-08-24 13:22 | Pharmacy Report ---
Pharmacy Glycemic Short Note 2 - Date of Service August 24, 2024 - Glycemic Short BSG Results (Last 24 hours): 08/23/24 08/23/24 08/23/24 17:09 17:11 20:30 Glucose POC Glucose 375 H* 360 H* 352 H* 08/23/24 08/23/24 08/24/24 20:32 23:48 04:31 Glucose POC Glucose 330 H* 308 H* 317 H* 08/24/24 08/24/24 08/24/24 04:32 05:29 07:40 Glucose 323 H* POC Glucose 337 H* 310 H* 08/24/24 12:20 Glucose POC Glucose 276 H OUTPATIENT ANTIDIABETIC REGIMEN: * Humulin U-500 insulin per scale BID/TID * Metformin 1000 mg PO BIDM * Ozempic 2 mg SC weekly HbA1c: 7.4% (08/22/24) ASSESSMENT: 08/24/24: * Patient profoundly hyperglycemic yesterday, received 173 units of insulin (60 units of which were basal) * Will change Lantus to NPH today (if unsuccessful, then will consider U-500 insulin tomorrow) * Fasting blood sugar of 310 mg/dL this morning - will give IV insulin bolus in addition to SC NPH/Novolog * Lunch blood sugar of 276 mg/dL, given downward trend since time of consult, will hold off on insulin infusion at this time 08/23/24: * DF is a 59 year old female admitted w/ sepsis secondary to diabetic foot infection * Blood cultures x 2 positive for gram-positive cocci in chains ( Streptococcus agalactiae per BCID-2) * Receiving Zosyn at this time * Pharmacy consulted for glycemic management ~lunchtime today due to persistent hyperglycemia (blood sugar > 400 mg/dL) * Discussed outpatient regimen w/ patient who reports estimating U-500 doses at home, sometimes taking up to 180 units in the morning and 75 units at dinner. Patient sometimes takes a dose at lunchtime, but often skips it. * Currently ordered insulin regimen is far too conservative, will tighten based on weight-based parameters and give one-time IV bolus * T2DM diet ordered PLAN FOR INPATIENT GLYCEMIC CONTROL: * Hold outpatient oral diabetes medications * IV insulin bolus of 10 units x 1 at breakfast * Basal insulin - increase and switch to NPH * NPH 60 units SC w/ breakfast * NPH 20-35-50 units SC w/ dinner * Bolus insulin - tighten * NovoLog per scale ACHS or Q6hrs while NPO * Goal Range: Low 110 mg/dL - High 140 mg/dL * Correction Factor: 5 mg/dL/unit * Nutritional / Prandial insulin per carb ratio of 1 unit per 2 grams CHO consumed
[2024-08-24] MEDS: PREGABALIN 75 MG CAP PO SCH (13:30)
[2024-08-24] MEDS: POT PHOSPHATE MONOBASIC W/ SOD TAB PO SCH (13:30)
[2024-08-24] MEDS: oxyCODONE HCL IR 5 MG TAB (IMMEDIATE RELEASE) PO PRN (15:21)
--- NOTE | 2024-08-24 21:32 | Podiatry Progress Note ---
Date of Service August 24, 2024 Assessment & Plan (1) Osteomyelitis of right foot: (2) Septic joint: (3) Sepsis: Plan Patient examined and evaluated. - Plan for right ankle I&D/left fifth toe debridement on . - Will plan on taking deep cultures, pathology specimens as needed. - Continue abx until then. - Can likely d/c home after surgery on Friday, pending results of surgical intervention Admission and Anticipated Discharge Date Admission Date: August 22, 2024 Subjective Pt seen at bedside at lunchtime. No new concerns. Feeling better on antibiotics. Denies new pain or systemic symptoms. Now, concerned about care home IV abx usage and impact on her work status after discharge. Review of Systems Constitutional: + fever, + chills and + malaise; no fati matheus Eyes: no problem reported Ear, Nose, Mouth, Throat: no problem reported Respiratory: no problem reported Cardiovascular: + edema; no problem reported Gastrointestinal: no nausea, no vomiting and no problem reported Genitourinary: no problem reported Musculoskeletal: no problem reported Integumentary: + skin ulcer, + wounds and + erythema Neurologic: + loss of sensation, + numbness and + pa resthesia; no generalized weakness Psychiatric: no problem reported Physical Exam Physical Exam: There is significant pain on palpation of the right ankle joint. There is pain on range of motion and guarding noted throughout. There is no open lesion associated with the right foot and ankle. The left fifth toe has an ulceration noted to the fifth proximal interphalangeal joint. There is scant purulent drainage with no active bleeding to this ulcer. This does not probe deep to the bone but does extend full-thickness through the dermis. This ulcer measures 0.7 x 0.2 x 0.2 cm. The wound bed was 100% fibrotic. Advanced imaging of the right ankle reveals potential abscess at the level of the ankle joint with increased bone marrow edema to the calcaneus and talus as well. This is concerning for septic ankle and even calcaneal osteomyelitis, if this is purulence. Plain film imaging of the left foot was ordered to assess for any bone involvement of the fifth toe ulcer. Right foot CT reveals no specific bony erosions or osseous structural changes. No evidence of Charcot neuroarthropathy, as well. Constitutional: WD/WN, vitals as above + ill appearing and + morbidly obese; no acute distress Eyes: PERRL, conjunctivae normal, anicteric sclerae ENMT: external ear and nose normal, oropharynx normal Mouth: + poor dentition Neck: trachea midline, no thyromegaly normal visual inspection Respiratory: normal respiratory effort; no respiratory distress Cardiovascular: Rate/Rhythm: regular rate and regular rhythm Chest (Breasts): Chest: normal inspection of chest Gastrointestinal (Abdomen): Inspection/Auscultation: abdomen normal to inspection Percussion/Palpation: + abdomen tender and abdomen soft Musculoskeletal: no cyanosis or clubbing, extremities motor strength 5/5 Head/Neck/Chest: normocephalic and head atraumatic Extremities: extremities normal to inspection Ankle: + skin erythema and + limited ROM of ankle (Due to guarding and pain to right ankle) Skin: + ulcer and + wound Neurologic: awake; no focal motor deficits Psychiatric: A+Ox3, euthymic affect Results & Data Results & Data Vital Signs (Past 12 Hours) Vital Signs Temp Pulse Resp BP Pulse Ox O2 Del Method 08/24/24 19:50 37.5 C 102 H 20 114/62 94 Room Air 08/24/24 15:34 37.1 C 98 H 16 104/67 96 Nasal Cannula 08/24/24 12:43 37.6 C H 98 H 18 107/67 99 Room Air 08/24/24 10:47 36.9 C 90 20 102/68 90 Room Air 08/24/24 09:37 Room Air Diagnostic Findings New radiographs of left foot reveal no bony involvement of the fifth toe. (1) Osteomyelitis of right foot Osteomyelitis type: acute hematogenous Qualified Code(s): M86.071 - Acute hematogenous osteomyelitis, right ankle and foot (2) Septic joint Laterality: right Septic arthritis location: foot Septic arthritis organism: due to unspecified organism Qualified Code(s): M00.9 - Pyogenic arthritis, unspecified
[2024-08-25] MEDS: INSULIN ASPART PER UNIT CHARGE SC SCH (00:27)
[2024-08-25 06:20] LABS: BUN Creatinine Ratio 20.2 (10-20); Calcium 8.3 mg/dl (8.6-10.3); Creatinine Clr Calc Pharmacy 76.5 ml/min; Magnesium 1.8 mg/dl (1.7-2.4); Phosphorus 2.5 mg/dl (2.5-4.9); Potassium 3.7 mmol/L (3.5-5.1)
--- NOTE | 2024-08-25 09:55 | Electrocardiogram Report ---
Test Reason : Blood Pressure : */* mmHG Vent. Rate : 91 BPM Atrial Rate : 91 BPM P-R Int : 130 ms QRS Dur : 80 ms QT Int : 364 ms P-R-T Axes : 61 0 11 degrees QTcB Int : 447 ms Normal sinus rhythm Low voltage QRS Nonspecific ST and T wave abnormality Borderline ECG No previous ECGs available Confirmed by Mayo Gallegos ([id number]) on 08/25/2024 9:55:05 AM Referred By: REFERRED SELF Confirmed By: Mayo Gallegos
--- NOTE | 2024-08-25 13:08 | Hospitalist Progress Note ---
Date of Service August 25, 2024 Assessment & Plan (1) Sepsis: (2) Streptococcal bacteremia: (3) Septic joint: (4) Osteomyelitis of right foot: (5) Diabetes mellitus due to underlying condition, uncontrolled, with hyperglycemia, with long-term current use of insulin: (6) Peripheral neuropathy: (7) Hypertension: Plan Patient with strep bacteremia due to septic joint. Continue cefazolin as directed by infectious disease, with new wound cultures resulted- communication with infectious disease, MSSA sensitive to cefazolin. Continue Blood cultures sterile, can place PICC line today, consent obtained earlier. Anticipate 6 weeks of IV antibiotics Anticipate surgical debridement of septic joint tomorrow per podiatry Continue current diabetes management NPH and short acting insulin, glucose is much better improved and controlled Give 1 dose of Lasix for some pretibial edema and increased weight, continue to monitor daily Medically maximized for anticipated surgery tomorrow Admission and Anticipated Discharge Date Admission Date: August 22, 2024 Subjective Patient reports no acute issues overnight. States she does have some chronic lower extremity swelling Physical Exam Physical Exam: Constitutional: Alert, nontoxic HEENT: Mucous membranes moist. Lungs: Clear to auscultation, decreased, no wheezes rales or rhonchi CV: S1-S2, regular Abdomen: Soft, nontender, nondistended Extremities: Pretibial edema Neuro: No focal deficits Psych: Cooperative, normal mood Results & Data Results & Data Vital Signs (Past 12 Hours) Vital Signs Temp Pulse Resp BP Pulse Ox O2 Del Method 08/25/24 08:06 Room Air 08/25/24 07:39 37.2 C 86 20 135/86 92 Room Air Diagnostic Findings Reviewed imaging, laboratory and diagnostic studies. Pertinent findings as below. Surveillance blood cultures sterile at 48 hours Electrolytes and renal function stable Glucose was reviewed, significantly improved Toe wound culture growing Staph aureus in addition to strep Reviewed intake and output, weight slightly increased (3) Septic joint Laterality: right Septic arthritis location: foot Septic arthritis organism: due to unspecified organism Qualified Code(s): M00.9 - Pyogenic arthritis, unspecified (4) Osteomyelitis of right foot Osteomyelitis type: acute hematogenous Qualified Code(s): M86.071 - Acute hematogenous osteomyelitis, right ankle and foot
[2024-08-25] MEDS: FUROSEMIDE 40 MG TAB PO ONE (15:19)
[2024-08-26 05:58] LABS: Hematocrit (blood only) 24.5 % (37.0-47.0); Hemoglobin 7.9 g/dl (12.0-16.0); Mean Corpuscular Hemoglobin 25.9 pg (25.0-34.0); Mean Corpuscular Hgb Conc 32.2 g/dL (32.0-36.0); Mean Corpuscular Volume 80.3 fL (80.0-100.0); Mean Platelet Volume 9.3 fL (9.4-12.4); Platelet Count 270 K/uL (130-400); RDW Coefficient of Variation 16.8 % (11.5-14.5); RDW Standard Deviation 49.2 fL (36.4-46.3); Red Blood Count 3.05 M/uL (4.20-5.40)
[2024-08-26 06:16] LABS: BUN Creatinine Ratio 17.4 (10-20); Creatinine Clr Calc Pharmacy 72.5 ml/min; Potassium 3.2 mmol/L (3.5-5.1)
[2024-08-26] MEDS: INSULIN HUMAN NPH SC SCH (09:44)
[2024-08-26] MEDS ORDERED: MIDAZOLAM HCL 1 MG/ML 2ML VIAL ONE (10:58)
[2024-08-26] MEDS ORDERED: PROPOFOL IV EMULSION 10 MG/ML 20 ML VIAL IV ONE ×2 (10:58→12:36)
[2024-08-26] MEDS ORDERED: LIDOCAINE 2% 2 ML VIAL/AMP(20MG/ML) INFIL ONE (10:58)
[2024-08-26] MEDS ORDERED: fentaNYL citrate PF 100 MCG/2 ML VIAL ONE (10:59)
--- NOTE | 2024-08-26 11:07 | History & Physical Bridge Note ---
Date of Service August 26, 2024 History & Physical Bridge Note I have examined the patient, reviewed the History & Physical and in the interval since the performance of the History & Physical I have noted the following changes of clinical significance: no changes noted. Plan for right ankle I&D, left toe debridement. Consent obtained. All questions answered. Instructions/outcomes discussed.
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
[2024-08-26] MEDS ORDERED: ONDANSETRON INJ 2 MG/ML 2 ML VIAL IV PRN (11:19)
[2024-08-26] MEDS ORDERED: fentaNYL citrate PF 100 MCG/2 ML VIAL IV PRN (11:19)
[2024-08-26] MEDS ORDERED: ATROPINE SULFATE 0.1 MG/ML 10ML SYR IV PRN (11:19)
[2024-08-26] MEDS ORDERED: POTASSIUM CHLORIDE CRTAB 20 MEQ TABCR PO STA (12:19)
--- NOTE | 2024-08-26 12:25 | Hospitalist Progress Note ---
Date of Service August 26, 2024 Assessment & Plan (1) Sepsis: (2) Streptococcal bacteremia: (3) Septic joint: (4) Osteomyelitis of right foot: (5) Diabetes mellitus due to underlying condition, uncontrolled, with hyperglycemia, with long-term current use of insulin: (6) Peripheral neuropathy: (7) Hypertension: (8) Anemia: Plan Anticipate patient going to the operating room with podiatry today for a wash out of septic joint Continue current antibiotic regimen Prescription for home IV antibiotic sent case management, coordinating outpatient antibiotics PICC line placed yesterday Replace potassium at bedside and updated Continue to monitor glucose and cover hyperglycemia with subcutaneous insulin Follow-up labs in a.m. with potential for discharge as soon as tomorrow Admission and Anticipated Discharge Date Admission Date: August 22, 2024 Subjective Patient can tell that the pain in her ankle was definitely improving. Anxious to know when she is going to the operating room Physical Exam Physical Exam: Constitutional: Alert HEENT: Mucous membranes moist. Lungs: Clear to auscultation, decreased, no wheezes rales or rhonchi CV: S1-S2, regular Abdomen: Soft, nontender, nondistended Extremities: Chronic pretibial edema Neuro: No focal deficits Psych: Cooperative, normal mood Results & Data Results & Data Vital Signs (Past 12 Hours) Vital Signs Temp Pulse Resp BP Pulse Ox O2 Del Method 08/26/24 10:05 36.9 C 92 H 20 115/73 97 Room Air 08/26/24 08:00 Room Air 08/26/24 08:00 36.3 C L 86 16 115/78 95 Room Air 08/26/24 03:42 37.4 C 88 20 117/75 93 Room Air 08/26/24 00:54 Room Air Diagnostic Findings Reviewed imaging, laboratory and diagnostic studies. Pertinent findings as below. Hemoglobin 7.9, stable baseline Potassium 3.2 Creatinine 1.09 (3) Septic joint Laterality: right Septic arthritis location: foot Septic arthritis organism: due to unspecified organism Qualified Code(s): M00.9 - Pyogenic arthritis, unspecified (4) Osteomyelitis of right foot Osteomyelitis type: acute hematogenous Qualified Code(s): M86.071 - Acute hematogenous osteomyelitis, right ankle and foot
[2024-08-26] MEDS: BUPIVACAINE 0.5 % 5 MG/1 ML MPF 30ML VIAL ONE (13:06)
--- NOTE | 2024-08-26 13:12 | Post Operative Brief Note ---
Immediate Post Op Note Date of Surgery August 26, 2024 Pre & Post Diagnosis Operation Date: 08/26/24 11:00 Pre-Op Diagnosis: Right Foot Septic Ankle Joint, and Left Fifth Toe Chronic Ulceration Post-Op Diagnosis: Right Foot Septic Ankle Joint, and Left Fifth Toe Chronic Ulceration I identified the patient and participated in the time-out.: Yes Procedure Operation Date: 08/26/24 11:00 Actual Procedures p Right Ankle Incision and Drainage, Left Fifth Toe Wound Incision and Drainage(Bilateral) - Mike Watkins DPM Surgeon Mike Watkins DPM Subpoena Server None Estimated Blood Loss 50 Findings See Below No significant purulent drainage was noted to the right ankle. There was bleeding and hematoma formation, though no evidence of infection. Small customer solutions representative samples of talus were sent for pathology and bone culture. Specimens Swab culture from ankle joint Right talus for pathology Right talus for bone culture Anesthesia Type MAC Complications none Disposition Accompanied Patient To Recovery: Yes Disposition: Recovery Room
--- NOTE | 2024-08-26 13:59 | Anesthesiology Progress Note ---
Date of Service August 26, 2024 Anesthesia Post Procedure Vital Signs Vital Signs: Temp Pulse Resp BP Pulse Ox O2 Del Method 08/26/24 13:45 36.2 C L 84 14 121/79 99 Room Air 08/26/24 13:35 85 14 121/77 100 Room Air 08/26/24 13:25 85 15 113/85 100 Room Air 08/26/24 13:19 36.0 C L 89 15 106/82 100 Room Air 08/26/24 10:05 36.9 C 92 H 20 115/73 97 Room Air 08/26/24 08:00 Room Air 08/26/24 08:00 36.3 C L 86 16 115/78 95 Room Air 08/26/24 03:42 37.4 C 88 20 117/75 93 Room Air 08/26/24 00:54 Room Air 08/25/24 23:32 37.1 C 91 H 20 113/73 93 Room Air 08/25/24 15:03 37.3 C 97 H 18 116/73 94 Room Air Transfer of Care Handoff Completed per policy Notes Mental Status: alert / awake / arousable Patient Amnestic to Procedure: Yes Nausea / Vomiting: adequately controlled Pain: adequately controlled Airway Patency, RR, SpO2: stable & adequate BP & HR: stable & adequate Hydration State: stable & adequate Anesthetic Complications: no major complications apparent
--- NOTE | 2024-08-26 14:24 | Pharmacy Report ---
Pharmacy Glycemic Short Note 2 - Date of Service August 26, 2024 - Glycemic Short BSG Results (Last 24 hours): 08/25/24 08/25/24 08/26/24 17:10 20:13 05:40 Glucose 158 H POC Glucose 94 142 H 08/26/24 08/26/24 08/26/24 08:39 10: 13:21 Glucose POC Glucose 202 H 192 H 131 H OUTPATIENT ANTIDIABETIC REGIMEN: * Humulin U-500 insulin per scale BID/TID * Metformin 1000 mg PO BIDM * Ozempic 2 mg SC weekly HbA1c: 7.4% (08/22/24) ASSESSMENT: 08/26 * She received a total of 157 units of insulin yesterday (75 units were basal and 82 units were bolus). BSG trended down yesterday (ranged from 94-158 mg/dL) * NPH insulin was decreased to 40 units this morning since patient was made NPO for right ankle I&D (scheduled for 1100 today). Postop BSG was 131mg/dL. NPH scale that was ordered for dinner time will be continued. Bolus insulin parameters will also be continued as ordered. (should be started on diet this afternoon) 08/24/24: * Patient profoundly hyperglycemic yesterday, received 173 units of insulin (60 units of which were basal) * Will change Lantus to NPH today (if unsuccessful, then will consider U-500 insulin tomorrow) * Fasting blood sugar of 310 mg/dL this morning - will give IV insulin bolus in addition to SC NPH/Novolog * Lunch blood sugar of 276 mg/dL, given downward trend since time of consult, will hold off on insulin infusion at this time 08/23/24: * DF is a 59 year old female admitted w/ sepsis secondary to diabetic foot infection * Blood cultures x 2 positive for gram-positive cocci in chains ( Streptococcus agalactiae per BCID-2) * Receiving Zosyn at this time * Pharmacy consulted for glycemic management ~lunchtime today due to persistent hyperglycemia (blood sugar > 400 mg/dL) * Discussed outpatient regimen w/ patient who reports estimating U-500 doses at home, sometimes taking up to 180 units in the morning and 75 units at dinner. Patient sometimes takes a dose at lunchtime, but often skips it. * Currently ordered insulin regimen is far too conservative, will tighten based on weight-based parameters and give one-time IV bolus * T2DM diet ordered PLAN FOR INPATIENT GLYCEMIC CONTROL: * Hold outpatient oral diabetes medications * Basal insulin -switched to NPH on 08/24 * NPH 40 units SC w/ breakfast today * NPH 15-25-35 units SC w/ dinner * Bolus insulin - * NovoLog per scale ACHS or Q6hrs while NPO * Goal Range: Low 110 mg/dL - High 140 mg/dL * Correction Factor: 6 mg/dL/unit * Nutritional / Prandial insulin per carb ratio of 1 unit per 2 grams CHO consumed
[2024-08-26] MEDS ORDERED: Nursing to Pharmacy Communication SCH (14:45)
[2024-08-26] MEDS: POTASSIUM CHLORIDE CRTAB 20 MEQ TABCR PO STA (16:12)
[2024-08-27] MEDS: METOPROLOL TARTRATE 25 MG TAB PO STA (00:10)
[2024-08-27] MEDS: MAGNESIUM SULFATE / D5W 1 GM/100 ML BAG IV ONE (00:10)
[2024-08-27 00:18] LABS: Magnesium 1.7 mg/dl (1.7-2.4)
[2024-08-27 03:01] VITALS: O2SAT 93
[2024-08-27 07:28] VITALS: BP 117/70; PULSE 88; RESP 16; TEMP 99.1
[2024-08-27 08:20] LABS: Hematocrit (blood only) 23.9 % (37.0-47.0); Hemoglobin 7.7 g/dl (12.0-16.0); Mean Corpuscular Hgb Conc 32.2 g/dL (32.0-36.0); Mean Corpuscular Volume 80.7 fL (80.0-100.0); Platelet Count 280 K/uL (130-400); RDW Coefficient of Variation 16.9 % (11.5-14.5); RDW Standard Deviation 50.1 fL (36.4-46.3); Red Blood Count 2.96 M/uL (4.20-5.40); White Blood Count 5.86 K/ul (4.8-10.8)
[2024-08-27 09:13] LABS: Basophils # (auto) 0.01 K/uL (0.00-0.20); Basophils % (auto) 0.2 %; Immature Granulocytes % (auto) 1.7 %; Lymphocytes # (auto) 1.08 K/uL (1.20-3.40); Lymphocytes % (auto) 18.4 %; Monocytes # (auto) 0.59 K/uL (0.11-0.59); Monocytes % (auto) 10.1 %; Neutrophils # (auto) 4.08 K/uL (1.40-6.50); Neutrophils % (auto) 69.6 %; Polychromasia 1+; Rouleaux 1+
[2024-08-27 09:14] LABS: BUN Creatinine Ratio 18.2 (10-20); Calcium 8.1 mg/dl (8.6-10.3); Creatinine Clr Calc Pharmacy 89.8 ml/min; Magnesium 1.9 mg/dl (1.7-2.4); Potassium 3.7 mmol/L (3.5-5.1)
[2024-08-27] MEDS: INSULIN HUMAN NPH SC SCH (10:54)
--- NOTE | 2024-08-27 10:56 | Discharge Summary ---
Discharge Summary Date of Service August 27, 2024 Principal Dx & Hospital Course #1 = Principal Diagnosis (1) Sepsis: (2) Streptococcal bacteremia: (3) Septic joint: (4) Osteomyelitis of right foot: (5) Diabetes mellitus due to underlying condition, uncontrolled, with hyperglycemia, with long-term current use of insulin: (6) Peripheral neuropathy: (7) Hypertension: (8) Anemia: Plan Patient presented to the emergency room with complaints of increasing foot and ankle pain. In the emergency room there is concerns of possible septic right ankle and was referred for further evaluation. Patient was admitted to the hospital. She was placed on broad-spectrum antibiotics. Podiatry consultation was obtained. Blood cultures revealed streptococcal bacteremia. Infectious disease consultation was obtained. Based on sensitivities recommended IV cefazolin. Was evaluated by podiatry. Plan to do surgical intervention on the ankle as well as bilateral fifth toes. Pharmacy diabetes management was actively involved in managing her glucoses. Follow-up/surveillance blood cultures were sterile. PICC line was placed. On 08/26/2024 patient underwent I&D and debridement of right ankle and bilateral fifth toes. Her postoperative course was uneventful. Her other laboratory studies were stable. Case management was involved in her care and coordinated home IV antibiotics. She will need IV cefazolin for 6 weeks from the date of sterile blood cultures. She will be followed up with podiatry clinic. She will follow-up with her PCP for ongoing routine care of her other multiple medical issues. Notes For Next Care Provider Continue to aggressively manage diabetes for tight control Continue IV antibiotics through 10/04/2024 May remove PICC line after antibiotics complete CBC BMP weekly while on antibiotics Follow-up with podiatry for wound care and ongoing management of her chronic foot issues. Medication Changes From Visit Cefazolin IV for bacteremia and septic arthritis Admission HPI Per Admitting Provider History obtained from patient and records. Medical history significant for hypertension, hyperlipidemia, DM2 insulin requiring, GERD, chronic anemia (baseline hemoglobin of 11), urolithiasis, recurrent UTI on chronic methenamine suppression Rx, anxiety/mood disorder. 2 weeks history of worsening achy right foot/ankle pain without recollection of trauma. No bleeding as per patient. No fever, no chills patient denies chest pain, SOB, headache symptoms. Patient consulted ER. Daptomycin and Zosyn administered at the ER. Lowest SBP of 90s documented at the ER. senior payroll specialist on-call recommended transfer to tertiary center for management of possible septic joint. [facility] [place] office support specialist declined transfer as per ED provider. Medical History as above Surgical History : Hysterectomy, appendectomy, section Family History : DM, heart disease Personal/Social history : Non-smoker, no EtOH intake, professional nursing assistant Admission Exam Per Admitting Provider See H&P Discharge Exam Constitutional: Alert, nontoxic HEENT: Mucous membranes moist. Lungs: Clear to auscultation, decreased, no wheezes rales or rhonchi CV: S1-S2, regular Abdomen: Soft, nontender, nondistended Extremities: Surgical dressings clean dry and intact Neuro: No focal deficits Psych: Cooperative, normal mood Updated Medication List Medication Instructions Recorded Confirmed Type atenolol 25 mg tablet 25 mg PO HS 03/02/24 08/22/24 History fluticasone propionate 50 1 spray intranasal Q12H 03/02/24 08/22/24 History mcg/actuation nasal spray,suspension lisinopril 20 1 tab PO QAM 03/02/24 08/22/24 History mg-hydrochlorothiazide 25 mg tablet metformin 500 mg tablet 1,000 mg PO BID 03/02/24 08/22/24 History mirtazapine 15 mg tablet 15 mg PO HS 03/02/24 08/22/24 History pregabalin 75 mg capsule 75 mg PO BID 03/02/24 08/22/24 History rosuvastatin 10 mg tablet (Crestor) 10 mg PO HS 03/02/24 08/22/24 History venlafaxine 150 mg 150 mg PO HS 03/02/24 08/22/24 History capsule,extended release 24 hr venlafaxine 75 mg tablet 75 mg PO HS 03/02/24 08/22/24 History lactobacillus combination no.9 4 4,000 mmu cells PO DAILY 03/09/24 08/22/24 Hi story billion cell capsule (Adult 50 Plus Probiotic) insulin regular hum U-500 conc 500 0 unit subcut TID 05/27/24 08/22/24 History unit/mL(3 mL) subcut pen (Humulin R U-500 (Conc) Insulin Kwikpen) methenamine hippurate 1 gram tablet 1 g PO BID #90 tabs 08/04/24 08/22/24 Rx nitrofurantoin 100 mg PO Q12H 5 days #10 caps 08/18/24 08/22/24 Rx monohydrate/macrocrystals 100 mg capsule (Macrobid) semaglutide 2 mg/dose (8 mg/3 mL) 2 mg subcut WK 08/22/24 08/22/24 History subcutaneous pen injector (Ozempic) oxycodone 5 mg tablet 10 mg (2 x 5 mg) PO Q4H PRN pain 08/27/24 Rx #10 tabs Hospital Stay Data Consultations 08/22/24 21:14 ED Decision to Admit Stat 08/22/24 21:51 Consult Infectious Diseases Routine 08/23/24 00:09 Consult Podiatry Routine Procedures Performed Operation Date: 08/26/24 11:00 Actual Procedures p Right Ankle Incision and Drainage, Left Fifth Toe Wound Incision and Drainage(Bilateral) - Mike Watkins DPM Diagnostic Imagining Performed 08/22/24 14:03 CT ankle RT w con Stat 08/22/24 16:01 MR ankle RT wo con Stat MR foot RT w/o con Stat 08/22/24 21:51 US venous doppler LE RT Stat Reviewed imaging, laboratory and diagnostic studies. Pertinent findings as below. Initial blood cultures grew group B strep Wound culture from toe grew out MSSA as well as group B strep Surveillance blood cultures sterile to date WBCs 5.8 Hemoglobin 7.7 Platelets 280 Sodium 134 Potassium 3.7 Glucose 126 Hemoglobin A1c 7.4% Pending Results Patient Have Any Pending Studies at Discharge: Yes Discharge Instructions Given to Patient (Per Discharging Provider) you will need IV antibiotics through October 04. Follow-up with podiatry as coordinated through their office Keep current dressings intact until you are seen by podiatry in their office next week Home Health Attestation I certify that this patient is under my care and that I, or a physicians janitorial assistant working with me, had a face to-face encounter that meets the home health [id number] encounter requirements with this patient. The encounter with the patient was in whole, or in part, for the following medical condition, which is the primary reason for home health care (list medical condition): I certify that, based on my findings, the following services are medically necessary home health services: My clinical findings support the need for the above services because: Further, I certify that my clinical findings support that this patient is homebound (i.e. absences from home require considerable and taxing effort and are for medical reasons or confucianist services or infrequently or of short duration when for other reasons) because: Certification for Home Health Services: Based on the above findings, I certify that this patient is confined to the home and needs intermittent prison care, physical therapy and/or speech therapy or continues to need occupational therapy. The patient is under my care, and I have initiated the establishment of the plan of care. This patient will be followed by a physician who will periodically review the plan of care. Total Time Total Time Spent Total Time Spent (In Minutes): 40
--- NOTE | 2024-09-02 12:36 | Operative Report ---
Post Operative Report Pre & Post Diagnosis Operation Date: 08/26/24 11:00 Pre-Op Diagnosis: Right Foot Septic Ankle Joint, and Left Fifth Toe Chronic Ulceration Post-Op Diagnosis: Right Foot Septic Ankle Joint, and Left Fifth Toe Chronic Ulceration I identified the patient and participated in the time-out.: Yes Procedure Operation Date: 08/26/24 11:00 Actual Procedures p Right Ankle Incision and Drainage, Left Fifth Toe Wound Incision and Drainage(Bilateral) - Mike Watkins DPM Surgeon Mike Watkins DPM Water Pollution Specialist None Estimated Blood Loss 50 Findings Consistent with Post-Op Diagnosis No significant purulent drainage was identified within the ankle joint. The left fifth toe wound was superficial and did not extend to the level of the bone or joint. Tower Loader Operator cultures and pathology were able to be obtained from the ankle arthrotomy incision on the lateral right ankle. No arthritic changes noted throughout the ankle joint. Specimens Right ankle tissue was sent for culture and pathology, including bone and soft tissue from the talus for pathology. Anesthesia Type MAC Disposition Accompanied Patient To Recovery: Yes Disposition: Recovery Room Indications This patient is a recent hospital patient of mine who presented with vague but severe right ankle pain and limitation of mobility. She also has a left fifth toe ulceration. She has a history of cellulitis of the lower extremities and has been treated for these on an outpatient and inpatient basis. Recently, she had an MRI here on this hospitalization that suggested she may have septic arthritis of the ankle. Because of this, she was consented to proceed with an ankle arthrotomy with incision and drainage to help decrease infectious burden and remove nonviable tissue. At the same time, because of the left fifth toe ulceration, we discussed a sharp debridement could be performed to help this heal in a more timely manner. Preoperative instructions, postoperative instructions, relative risks, and outcomes were all discussed at length. Consent was obtained for these procedures and all questions were answered. Description of Procedure The patient was brought to the operating room placed on the operating table in the supine position. Following administration of IV sedation, local analgesia was obtained utilizing 20 cc of half percent Marcaine plain in a local block fashion, with 15 cc injected for the right ankle block and 5 cc injected for the left fifth toe digital block. Because of the infectious and wound changes, and her uncertain vascular status, no tourniquet was utilized during the duration of this procedure. The bilateral limbs were scrubbed, prepped, and draped in the usual aseptic fashion. Attention was directed to the anterior lateral aspect of the right ankle, just anterior to the lateral malleolus where an incision was made extending distal towards the base of the fourth and fifth metatarsal along the lateral aspect of the ankle joint. The incision was carried down to the level of the ankle joint utilizing sharp and blunt dissection techniques. Care was taken to cauterize and ligate any superficial bleeding vessels as well as retract any vital neurovascular structures. The ankle joint was then broached utilizing a dissecting scissor and hematoma was able to be expressed with no evidence of purulent drainage. Around 50 cc of blood was able to be drained from the ankle joint in this manner, flushed from the ankle joint with motion of the ankle and with the use of saline. A small amount of bone was resected from the lateral talus to evaluate for underlying osteomyelitis, though with out severe purulent drainage, it was suspected that this could have been more of a hematoma than an infectious process. The surgical site was again flushed with copious months of sterile saline and closed utilizing 4-0 Monocryl in the deep subcutaneous tissue and subcuticular skin. 3-0 nylon was utilized to reapproximate the skin in a horizontal mattress fashion. Attention was then directed to the lateral fifth toe where a nonhealing neuropathic ulceration was noted overlying the PIPJ. This incision was curetted and debrided utilizing a 15 blade to healthy underlying wound base. With deep probing was noted. No tunneling along the extensor beltran apparatus was noted. The wound measured 1.3 x 0.3 cm with a depth of 0.1 cm. No ascending side. The wound margins were excised and primary closure was attempted but given the clean appearance of this wound. This was performed utilizing 3-0 nylon in a simple interrupted fashion as well. The incisions were dressed with Xeroform gauze, 4 x 4 gauze, Kerlix, and an Britton wrap. The patient tolerated the procedure well and was transferred to the recovery room with vital signs stable and vascular status intact to the feet. Following postoperative monitoring, the patient given prescriptions and instructions which were discussed with her prior to surgery I attest to the content of the Intraoperative Record and any orders documented therein. Any exceptions are noted below.
== END 2024-08-27 14:02 | disposition home health service (06) | DRG 854 ==
LOC: ED 11:08 → 2N 21:46 → SUATTDRO 21:46 → 2N 08-23 00:57 → 3N 08-26 23:41